=== PATIENT | male | born 1955 | race Caucasian/White ===

== ENCOUNTER → 2016-10-31 | Outpatient (CLI) | payer OTHER | LOC: RAD 06:50 | PROVIDERS: ATTEND Internal Medicine Gastroenterology | DX: K76.89 Other specified diseases of liver (principal) | CPT/HCPCS: 82565; 74183; A9576 ==

== ENCOUNTER 2018-11-14 13:54 | Emergency (ER) | payer MEDICARE, OTHER ==
--- NOTE | 2018-11-14 14:41 | ER Document Report ---
ED Medical Screen (RME) - General Chief Complaint: Urinary Problem Stated Complaint: BLOOD IN URINE Time Seen by Provider: 11/14/18 14:39 Primary Care Provider: RUTH RAMIREZ MD [Primary Care Provider] - Follow up as needed Mode of Arrival: Ambulatory Information source: Patient, Relative TRAVEL OUTSIDE OF THE [place] IN LAST 30 DAYS: No - HPI Patient complains to provider of: hematuria Onset: Last week - pt with h/o kidney stones with hematuria - Related Data Allergies/Adverse Reactions: No Known Allergies Allergy (Verified 11/14/18 13:55) Past Medical History - Social History Chew tobacco use (# tins/day): No Frequency of alcohol use: Occasional Drug Abuse: None - Past Medical History Cardiac Medical History: Denies: Hx Coronary Artery Disease, Hx Heart Attack, Hx Hypertension Pulmonary Medical History: Denies: Hx Asthma, Hx Bronchitis, Hx COPD, Hx Pneumonia Neurological Medical History: Denies: Hx Cerebrovascular Accident, Hx Seizures Renal/ Medical History: Denies: Hx Peritoneal Dialysis Musculoskeltal Medical History: Denies Hx Arthritis Past Surgical History: Reports: Hx Appendectomy. Denies: Hx Pacemaker - Immunizations Hx Diphtheria, Pertussis, Tetanus Vaccination: Yes Physical Exam - Vital signs Vitals: Temp Pulse Resp BP Pulse Ox 97.4 F 77 16 149/88 H 95 11/14/18 13:59 11/14/18 13:59 11/14/18 13:59 11/14/18 13:59 11/14/18 13:59 Course - Vital Signs Vital signs: Temp Pulse Resp BP Pulse Ox 97.4 F 77 16 149/88 H 95 11/14/18 13:59 11/14/18 13:59 11/14/18 13:59 11/14/18 13:59 11/14/18 13:59 Doctor's Discharge - Discharge Referrals: RUTH RAMIREZ MD [Primary Care Provider] - Follow up as needed
--- NOTE | 2018-11-14 16:27 | RADIOLOGY REPORT (SQ) ---
EXAM DESCRIPTION: CT ABD/PELVIS NO ORAL OR IV COMPLETED DATE/TIME: 11/14/2018 4:05 pm REASON FOR STUDY: renal colic COMPARISON: 10/31/2016 TECHNIQUE: CT scan of the abdomen and pelvis performed without intravenous or oral contrast. Images reviewed with lung, soft tissue, and bone windows. Reconstructed coronal and sagittal MPR images revi ewed. All images stored on PACS. All CT scanners at this facility use dose modulation, iterative reconstruction, and/or weight based d osing when appropriate to reduce radiation dose to as low as reasonably achievable (ALARA). [facility]: Dose Right [facility]: CareDose [facility]: Dose Right [facility]: Teradose 4D [facility]: [employer] RADIATION DOSE: CT Rad equipment meets quality standard of care and radiation dose reduction techniq ues were employed. CTDIvol: 10.8 mGy. DLP: 585 mGy-cm.mGy. LIMITATIONS: None. FINDINGS: LOWER CHEST: No significant findings. No nodules or infiltrates. NON-CONTRASTED LIVER, SPLEEN, ADRENALS: Evaluation limited by lack of IV contrast. Scattered hepatic cysts similar to the previous MRI. PANCREAS: No masses. No peripancreatic inflammatory changes. GALLBLADDER: No calcified stones. No inflammatory changes to suggest cholecystitis. RIGHT KIDNEY AND URETER: No cysts identified. No solid masses. 5 mm calcified stone in the proximal right ureter with mild hydronephrosis - hydroureter. Additional 3 mm calcified stone in the lower po le parenchyma. LEFT KIDNEY AND URETER: No cysts identified. No solid masses. No calcified stones. No hydronephrosis or hydroureter. AORTA AND RETROPERITONEUM: No aneurysm. No retroperitoneal masses or adenopathy. BOWEL AND PERITONEAL CAVITY: No obvious masses or inflammatory changes. No free fluid. APPENDIX: Normal. PELVIS, BLADDER, AND ABDOMINAL WALL:No abnormal masses. No free fluid. Unremarkable bladder. BONES: No acute findings. OTHER: No other significant finding. IMPRESSION: 5 mm calcified stone in the proximal right ureter with mild hydronephrosis - hydrourete r. TECHNICAL DOCUMENTATION: JOB ID: [id number] [id number] Quality ID # [id number]: Final reports with documentation of one or more dose reduction techniques (e.g., Au tomated exposure control, adjustment of the mA and/or kV according to patient size, use of iterative reconstruction technique) 2010 [employer]- All Rights Reserved Reading location - IP/workstation name: [facility]
[2018-11-14] MEDS ORDERED: KETOROLAC TROMETHAMINE INJ/PF 30 MG/1 ML SDV IV ONE (16:49)
[2018-11-14] MEDS ORDERED: ONDANSETRON HCL INJ/PF 4 MG/2 ML SDV IV ONE (16:49)
[2018-11-14] MEDS ORDERED: MORPHINE SULFATE 10 MG/ML INJ IV ONE (16:49)
[2018-11-14] MEDS ORDERED: NORMAL SALINE 1000 ML 1,000 ML IV ONE (16:50)
--- NOTE | 2018-11-14 17:02 | ER Document Report ---
ED General - General Chief Complaint: Urinary Problem Stated Complaint: BLOOD IN URINE Time Seen by Provider: 11/14/18 14:39 Primary Care Provider: RUTH RAMIREZ MD [ACTIVE STAFF] - Follow up as needed Mode of Arrival: Ambulatory TRAVEL OUTSIDE OF THE [place] IN LAST 30 DAYS: No - HPI Notes: Patient is a 63-year-old male with no significant past medical history aside from known kidney stones who presents emergency department complaining of hematuria and intermittent dull backache that began this morning. Patient states that he was at his urologist earlier this week and they noted stones, one in each kidney, and told him to monitor. Patient states that he was being blood so he came the emergency department. Patient states that he otherwise feels well at this time. He has been eating and drinking without difficulty. He is having normal bowel movements. Denies drug allergies. He is not on any blood thinning medications. He does not take any other medicines daily. Denies any headache, fever, neck pain, URI, sore throat, chest pain, palpitations, syncope, cough, shortness of breath, wheeze, dyspnea, abdominal pain, nausea/vomitin g/diarrhea, urinary retention, dysuria, loss of control of bowel or bladder, numbness/tingling, saddle anesthesia, muscle paralysis/weakness, or rash. - Related Data Allergies/Adverse Reactions: No Known Allergies Allergy (Verified 11/14/18 13:55) Past Medical History - General Information source: Patient, Relative - Social History Smoking Status: Current Every Day Smoker Chew tobacco use (# tins/day): No Frequency of alcohol use: Occasional Drug Abuse: None Family History: Reviewed & Not Pertinent Patient has suicidal ideation: No Patient has homicidal ideation: No - Past Medical History Cardiac Medical History: Denies: Hx Coronary Artery Disease, Hx Heart Attack, Hx Hypertension Pulmonary Medical History: Denies: Hx Asthma, Hx Bronchitis, Hx COPD, Hx Pneumonia Neurological Medical History: Denies: Hx Cerebrovascular Accident, Hx Seizures Renal/ Medical History: Denies: Hx Peritoneal Dialysis Musculoskeletal Medical History: Denies Hx Arthritis Past Surgical History: Reports: Hx Appendectomy. Denies: Hx Pacemaker - Immunizations Hx Diphtheria, Pertussis, Tetanus Vaccination: Yes Hx Pneumococcal Vaccination: 05/25/11 Review of Systems - Review of Systems -: Yes All other systems reviewed and negative Physical Exam - Vital signs Vitals: Temp Pulse Resp BP Pulse Ox 97.4 F 77 16 149/88 H 95 11/14/18 13:59 11/14/18 13:59 11/14/18 13:59 11/14/18 13:59 11/14/18 13:59 - Notes Notes: PHYSICAL EXAMINATION: GENERAL: Well-appearing, well-nourished and in no acute distress. LUNGS: Breath sounds clear to auscultation bilaterally and equal. No wheezes rales or rhonchi. HEART: Regular rate and rhythm without murmurs, rubs, gallops. ABDOMEN: Soft, nontender, nondistended abdomen. No guarding, no rebound. No masses appreciated. Normal bowel sounds present. No CVA tenderness bilaterally. Musculoskeletal: FROM to passive/active. Strength 5+/5. Extremities: No cyanosis, clubbing, or edema b/l. Peripheral pulses 2+. Capillary refill less than 3 seconds. NEUROLOGICAL: Normal speech, normal gait. PSYCH: Normal mood, normal affect. SKIN: Warm, Dry, normal turgor, no rashes or lesions noted. Course - Re-evaluation Re-evalutation: 11/14/18 18:33 Patient is an afebrile, well-hydrated, 63-year-old male who presents emergency department with a right ureteral stone, 5 mm. Vitals are acceptable without significant tachycardia, tachypnea, or hypoxia. PE is otherwise unremarkable. Patient's abdomen is soft and nontender. CBC, CMP, urinalysis unremarkable. See CT scan report. Patient is nontoxic-appearing and is tolerating p.o. without difficulty. Low suspicion/risk for urosepsis, acute appendicitis, bowel obstruction, acute cholecystitis, perforated diverticulitis, incarcerated hernia, pancreatitis, perforated ulcer, peritonitis, sepsis, testicular torsion, or other systemic emergent condition at this time. Patient is aware that his condition can change from initial presentation and he needs to monitor symptoms closely and seek medical attention if any acute changes. Patient is already on Flomax. Patient states that he does not have any discomfort and does not want any pain medicine. I will send him home with nausea medicine as a precautionary even though he currently does not have any nausea. Conservative measures otherwise for symptoms. Recheck with PCM in 2-3 days. Schedule appointment with your urologist. Return to the ED with any worsening/concerning symptoms otherwise as reviewed in discharge. Patient is in agreement. - Vital Signs Vital signs: Temp Pulse Resp BP Pulse Ox 97.4 F 77 16 149/88 H 95 11/14/18 13:59 11/14/18 13:59 11/14/18 13:59 11/14/18 13:59 11/14/18 13:59 - Laboratory Result Diagrams: 11/14/18 17:50 11/14/18 17:50 Laboratory results interpreted by me: 11/14/18 11/14/18 16:50 17:50 RDW 14.5 H Lymphocytes % 10.8 L Urine Protein 100 H Urine Blood LARGE H Discharge - Discharge Clinical Impression: Right ureteral stone Condition: Stable Disposition: HOME, SELF-CARE Additional Instructions: Push fluids (i.e. water, cranberry juice) Proper hygenic technique Keep the skin clean Tylenol/ibuprofen as needed Strain your urine Take medications as directed F/u with your PCM in 3-5 days for a recheck Schedule appointment with urology for further evaluation and management Return to the ED with any worsening symptoms and/or development of fever, headache, chest pain, palpitations, syncope, shortness of breath, trouble breathing, abdominal pain, n/v/d, blood in stool/urine, loss of control of alan l/bladder, urinary retention, or other worsening symptoms that are concerning to you. Prescriptions: Ondansetron [Zofran Odt 4 mg Tablet] 1 - 2 tab PO Q4H PRN #15 tab.rapdis PRN Reason: For Nausea/Vomiting Forms: Elevated Blood Pressure Referrals: RUTH RAMIREZ MD [ACTIVE STAFF] - Follow up as needed [facility] [Provider Group] - Follow up as needed
[2018-11-14 17:15] LABS: APPEARANCE,URINE SLIGHTLY-CLOUDY; BILIRUBIN,URINE NEGATIVE (NEGATIVE); GLUCOSE, URINE NEGATIVE (NEGATIVE); KETONES,URINE NEGATIVE (NEGATIVE); LEUKOCYTE ESTERASE,URINE NEGATIVE (NEGATIVE); NITRITE,URINE NEGATIVE (NEGATIVE); PROTEIN,URINE 100 mg/dL (NEGATIVE); URINE SPECIFIC GRAVITY 1.006; UROBILINOGEN,URINE NEGATIVE mg/dL (<2.0)
[2018-11-14 17:18] LABS: COLOR,URINE DARK YELLOW
[2018-11-14 18:12] LABS: ABSOLUTE BASOPHILS # (AUTO) 0.1 10^3/uL (0.0-0.2); ABSOLUTE EOSINOPHILS # (AUTO) 0.4 10^3/uL (0.0-0.6); ABSOLUTE LYMPHOCYTES (AUTO) 0.9 10^3/uL (0.5-4.7); ABSOLUTE MONOCYTES (AUTO) 0.8 10^3/uL (0.1-1.4); ABSOLUTE NEUT (AUTO) 6.5 10^3/uL (1.7-8.2); BASOPHILS % (AUTO) 0.6 % (0-2); EOSINOPHILS % (AUTO) 4.3 % (0-6); HEMATOCRIT 46.9 % (37.9-51.0); HEMOGLOBIN 16.3 g/dL (13.5-17.0); LYMPHOCYTES % (AUTO) 10.8 % (13-45); MEAN CORPUSCULAR HEMOGLOBIN 31.8 pg (27.0-33.4); MEAN CORPUSCULAR HGB CONC 34.8 g/dL (32.0-36.0); MEAN CORPUSCULAR VOLUME 92 fl (80-97); MONOCYTES % (AUTO) 9.2 % (3-13); PLATELET COUNT 199 10^3/uL (150-450); RED BLOOD COUNT 5.13 10^6/uL (4.35-5.55); RED CELL DISTRIBUTION WIDTH 14.5 % (11.5-14.0); SEGMENTED NEUTROPHILS % (AUTO) 75.1 % (42-78); TOTAL CELLS COUNTED % (AUTO) 100 %; WHITE BLOOD COUNT 8.6 10^3/uL (4.0-10.5)
[2018-11-14 18:24] LABS: ALANINE AMINOTRANSFERASE 38 U/L (21-72); ALBUMIN 4.4 g/dL (3.5-5.0); ALKALINE PHOSPHATASE 87 U/L (38-126); ANION GAP 9 (5-19); ASPARTATE AMINO TRANSFERASE 29 U/L (17-59); BILIRUBIN,DIRECT 0.2 mg/dL (0.0-0.4); BILIRUBIN,TOTAL 0.6 mg/dL (0.2-1.3); BLOOD UREA NITROGEN 17 mg/dL (7-20); CALCIUM 9.9 mg/dL (8.4-10.2); CARBON DIOXIDE 27 mmol/L (22-30); CHLORIDE 104 mmol/L (98-107); GLUCOSE 98 mg/dL (75-110); POTASSIUM 4.4 mmol/L (3.6-5.0); SODIUM 140.3 mmol/L (137-145); TOTAL PROTEIN 7.2 g/dL (6.3-8.2)
[2018-11-14 19:05] VITALS: BP 144/92
== END 2018-11-14 19:02 | disposition home or self-care (01) ==
LOC: ER 13:54
DX: N20.1 Calculus of ureter (principal); M54.9 Dorsalgia, unspecified; R31.9 Hematuria, unspecified; F17.200 Nicotine dependence, unspecified, uncomplicated
CPT/HCPCS: 96374; 99284; 36415; 87086; 85025; 80053; 81001; 74176; J1885; J7030